=== PATIENT | female | born 1990 | race Two or more races ===

== ENCOUNTER 2021-02-10 09:31 | Outpatient (CLI) | payer OTHER ==
--- NOTE | 2021-02-10 20:24 | MRI Report ---
PROCEDURE: Ankle LT W/O INDICATIONS: ANKLE INJURY TECHNIQUE: Noncontrast sagittal T1 spin echo and T2 fast spin echo with fat saturation, axial proton density fas t spin echo and T2 fast spin echo with fat saturation, coronal T1 spin echo and T2 fast spin echo wit h fat saturation through the ankle/hindfoot. COMPARISON: None. Findings: Bones: T2 hyperintense signal within the medial central talus, compatible with contusion. No discret e fracture line is appreciated. Muscles: No evidence of muscular atrophy or edema. Anterior tibiofibular ligament: Intact. Posterior tibiofibular ligament: Intact. Calcaneofibular ligament: Intact. Talar dome: No significant abnormality. Anterior talofibular ligament: Intact. Posterior talofibular ligament: Intact. Deltoid ligament: Partially disrupted Peroneal tendons: No evidence of tear or tenosynovitis. Tibialis posterior: No evidence of tear or tenosynovitis. Flexor digitorum: No evidence of tear or tenosynovitis. Flexor hallucis longus: No evidence of tear or tenosynovitis. Sinus Tarsi: No mass or fibrosis. Achilles tendon: Intact. Joint effusion: Small tibiotalar joint effusion. Plantar fascia: No evidence of tear or inflammation. IMPRESSION: 1. Edema within the medial/central portion of the talus, compatible with contusion. 2. Partial disruption of the deltoid ligament. 3. Small tibiotalar joint effusion. Reviewed by: Alexander Campos MD on 02/10/2021 8:23 PM PST Approved by: Alexander Campos MD on 02/10/2021 8:23 PM PST Station ID: [id number]
== END 2021-02-10 09:32 | disposition home or self-care (01) ==
LOC: DI 09:31
PROVIDERS: ATTEND Family Medicine
DX: S93.422A Sprain of deltoid ligament of left ankle, initial encounter (principal); M25.472 Effusion, left ankle